=== PATIENT | female | born 2005 | race Caucasian/White ===

== ENCOUNTER 2025-04-30 18:24 | Emergency (ER) | payer BC, SELFPAY ==
--- NOTE | ~2025-04-30 | CT_ITS ---
EXAMINATION: CT brain wo con COMPARISON: None HISTORY: fell, head vs concrete TECHNIQUE: Axial images were obtained through the brain without IV contrast. CT scan performed using dose optimization techniques including the following automated exposure control; adjustment of mA and/or kV; use of iterative reconstruction technique. Automatic exposure control was used to reduce radiation dose. Permanent radiation dose record is archived to PACS. FINDINGS: No acute infarct or parenchymal hemorrhage. No abnormal mass or mass effect. No midline shift. No extra-axial fluid collections. No hydrocephalus. . Mastoid air cells unremarkable. Sinuses and orbits unremarkable. No acute fracture. No significant facial or scalp soft tissue swelling evident. No radiopaque foreign body is seen. Impression: 1.No acute intracranial abnormality. Reviewed, dictated and finalized at location P. Impression: 1.No acute intracranial abnormality.
[2025-04-30 18:38] VITALS: BP 130/80; PULSE 93; RESP 17; TEMP 37.1; O2SAT 100
--- NOTE | 2025-04-30 20:38 | ED.FALL ---
HPI - Fall General Chief Complaint: Fall Stated Complaint: fall Time Seen by Provider: 04/30/25 20:26 History of Present Illness HPI Narrative: 19-year-old female presenting after a closed head injury yesterday. Patient states she was dancing and slipped from the floor and landed on the concrete on her right scalp. Did not lose consciousness and was able to get up right away. No blood thinner use. Patient denies any symptoms but her father went to get checked out. She states she took ibuprofen at home. Mild headache on the right side where she landed. No bleeding or skull injury. No other complaints at this time. No neurological symptoms. Related Data Allergies Allergy/AdvReac Type Severity Reaction Status Date / Time No Known Allergies Allergy Verified 04/30/25 18:27 Review of Systems Review of Systems: As reviewed above in HPI Exam Narrative: GENERAL: [Well-appearing, well-nourished, and in no acute distress.] HEAD: Normocephalic, no obvious trauma. Tenderness to palpation of the right parietal scalp but no deformity or crepitus. No bleeding. No skeletal fracture EYES: [PERRLA and EOMI.] ENT: Nares clear, no rhinorrhea or epistaxis. Mucous membranes moist. NECK: Supple. CHEST: [Clear to auscultation. No respiratory distress.] HEART: [Regular rate and rhythm]. No murmur heard. [Normal peripheral pulses.] ABDOMEN: [Soft, nondistended], [nontender], [No rigidity or guarding] EXTREMITIES: Normal range of motion. [No edema.] SKIN: Warm, dry, no rash. NEURO: [No focal deficits]. Alert and oriented [x3.] PSYCH: [Normal mood and affect.] Course Vital Signs Vital signs: Vital Signs Temperature 37.1 C 04/30/25 18:38 Pulse Rate 93 04/30/25 18:38 Respiratory Rate 17 04/30/25 18:38 Blood Pressure 130/80 04/30/25 18:38 Pulse Oximetry 100 04/30/25 18:38 Temperature 36.8 C 04/30/25 20:59 Pulse Rate 88 04/30/25 20:59 Respiratory Rate 18 04/30/25 20:59 Blood Pressure 128/72 04/30/25 20:59 Pulse Oximetry 99 04/30/25 20:59 MDM - Fall MDM Narrative Medical decision making narrative: 19-year-old female presenting after a closed head injury yesterday. Patient states she was dancing and slipped from the floor and landed on the concrete on her right scalp. Did not lose consciousness and was able to get up right away. No blood thinner use. Patient denies any symptoms but her father went to get checked out. She states she took ibuprofen at home. Mild headache on the right side where she landed. No bleeding or skull injury. No other complaints at this time. No neurological symptoms. Unremarkable neurological assessment. Normal vital signs. No red flag signs or symptoms. Head CT ordered in triage. CT unremarkable without any intracranial findings. Independently reviewed. Patient is safe for discharge and given ibuprofen and work note. Medical Records Attestation: I reviewed the patient's medical records. Imaging Data Attestation: I personally reviewed and interpreted this imaging study as follows: My impression: Impressions Head CT 04/30/25 19:12 Impression: 1.No acute intracranial abnormality. Discharge Plan Discharge Clinical Impression: CHI (closed head injury) Patient Disposition: Home Condition: Stable Instructions: Antibiotic Form, Concussion (ED) Additional Instructions: Head CT was reassuring with no intracranial findings or skull findings. Symptoms consistent with a mild concussion at best. Take ibuprofen 600 mg every 6-8 hours for pain control. If you have any worsening or new symptoms return to the emergency department. Follow-up with regular doctor. Light duty and no heavy lifting or strenuous activity for a week. Patient Language: Nauruan Follow-up/Referrals: PHYSICIAN NOT ON STAFF,NONSTAFF [Non-Staff] Stand Alone Forms: Work/School Release IP Time of Disposition: 20:39
[2025-04-30] MEDS: IBUPROFEN 600 MG TABLET PO (20:48)
--- OUTSIDE RECORDS SUMMARY | 2025-04-30 20:57 | XMS_ITS | Data Portability ---
Author Organization [facility], [facility] Address [address] [place] [address] Assessment No assessment recorded. Plan of Treatment Reminders Order Date Submit Date Provider Last Modified By Organization Details Last Modified Time Details Appointments None recorded . Lab None recorded . Referral None recorded . Procedures None recorded . Surgeries None recorded . Imaging None recorded . Medication Orders Rosalino dimine (28) 3 mg-0.02 mg tablet 2024 025 [email or web address] [facility] [address] [place], [address], 5 12:44:12 estradio l 1 mg tablet 2024 025 [email or web address] [address] [place], [address], 5 13:07:39 estradio l 1 mg tablet 2023 024 [facility] [address] [place], [address], 5 12:50:27 Angela (28) 3 mg-0.02 mg tablet [address] [facility] [address] [place], [address], 4 14:05:08 estradio l 1 mg tablet 2022 023 [facility] [address] [place], [address], 5 12:39:05 Angela (28) 3 mg-0.02 mg tablet 2022 023 [facility] [address] [place], [address], 3 12:22:53 estradio l 1 mg tablet 2021 022 [facility] [address] [place], [address], 5 12:39:05 drospire none 3 mg-ethin yl estradio l 0.02 mg tablet 2021 022 [facility] [address] [place], [address], 2 11:22:51 Patient TargetsNo targets recorded. 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 Reports she is on BOB's with estrogen on off days for cycle regulation and doing well. Desires to continue. R/B/A. Reports she has never been SA. Declines pap and will get @ next appt 2025 so she is prepared. If becomes SA recommend condoms for STI prevention and agree's. Follow up in 1 year for AWE and first pap. Call for any problems. [email or web address] Not available 08/23/2024 13:06:40 Reason for Referral None Reported. Problems Name Problem SNOMED Code Status Onset Date Resolution Date Notes Provider Name and Address Organization Details Recorded Time Uses combined oral contracep tion 518970923 Active 2019 Encounter for initial prescripti on of contracept jones pills; Progress: Stable Added By: Yvonne Brown Add to Current Problems: YES ProblemSta tus: Current Not Available [employer] 08:10:52 Problem Notes None recorded. Medical Equipment None Reported. Allergies No known drug allergies Medications Name Sig Start Date Stop Date Status Note LastModified by Organization Details LastModified Time amoxicill in 500 mg capsule 07/30 completed Not Available Not Available Not Available ondansetr on HCl 8 mg tablet 07/22 completed Not Available Not Available Not Available sumatript an 50 mg tablet 07/22 completed Not Available Not Available Not Available oxycodone -acetamin ophen 5 mg-325 mg tablet 07/25 completed Not Available Not Available Not Available famotidin e 20 mg tablet 07/22 completed Not Available Not Available Not Available amitripty line 25 mg tablet 07/22 completed Not Available Not Available Not Available estradiol 1 mg tablet take 1 tablet (1 mg) po qd for 5 days as needed for abnormal bleeding 2024 active estradio L 1 mg oral tablet RxNorm: 341350 Allow Substitu tion: True Refill Denied: No Edited by: Bryn Starks) on 01/17/20 21 Stopped by: Bryn Starks) on Not Available Not Available Not Available lorazepam 2 mg tablet 07/22 completed Not Available Not Available Not Available doxycycli ne monohydra te 100 mg capsule 07/22 completed Not Available Not Available Not Available cephalexi n 500 mg capsule 07/22 completed Not Available Not Available Not Available monteluka st 10 mg tablet 07/25 completed Not Available Not Available Not Available methylpre dnisolone 4 mg tablets in a dose pack 07/25 completed Not Available Not Available Not Available naproxen 500 mg tablet 07/25 completed Not Available Not Available Not Available amoxicill in 875 mg-potass ium clavulana te 125 mg tablet 07/22 completed Not Available Not Available Not Available Sprintec (28) 0.25 mg-0.035 mg tablet take 1 tablet by oral route once daily 06/25 completed Sprintec (28) 0.25-35 mg-mcg oral tablet RxNorm: 045240 Allow Substitu tion: False Refill Denied: No Refill DateOccu rred: 06/25/20 Edited by: Bryn Starks) on 06/25/20 Stopped by: Bryn Starks) on 06/25/20 20 Not Available Not Available Not Available Gardasil 9 (PF) 0.5 mL intramusc ular suspensio n im shot now and repeat in 2 and 6 months 07/25 completed Gardasil 9 (PF) 0.5 mL intramus cular Suspensi on RxNorm: 3098790 Allow Substitu tion: True Refill Denied: No Edited by: Bryn Starks) on 01/17/20 Stopped by: Bryn Starks) on Not Available Not Available Not Available Lo-Zumand imine (28) 3 mg-0.02 mg tablet TAKE 1 TABLET BY MOUTH EVERY DAY 2024 active Not Available Not Available Not Avai lable Vitals Date Recorded Body weight Systolic And Diastolic Provider Name and Address Organization Details Last Updated DateTime 07/22/2023 09073.18 g 118/62 mm[Hg] Yvonne [email or web address] 07/22/2023 12:29:45 Date Recorded Body weight Systolic And Diastolic Provider Name and Address Organization Details Last Updated DateTime 07/25/2022 36796.73 g 110/62 mm[Hg] Yvonne Kevin [facility] - [facility] 07/25/2022 12:12:22 Date Recorded Body weight Body temperature Systolic And Diastolic Provider Name and Address Organization Details Last Updated DateTime 07/30/2021 95879.7 g 97.1 [degF] 114/56 mm[Hg] Yvonne [facility] 07/30/2021 10:27:26 Date Recorded Body height Body mass index (BMI) Body weight Systolic And Diastolic Provider Name and Address Organization Details Last Updated DateTime 08/23/2024 165.1 cm 22.6 kg/m2 70790.84 g 118/76 mm[Hg] Alessandra [facility] 08/23/2024 12:42:23 Social History Question Answer Notes LastModified by Organizat ion Details LastModified Time Tobacco Smoking Status Never Smoker Afshan You null, [facility] 07/25/2021 17:17:08 If You Are , What Was Your Level Of Alcohol Consumption Prior To ? None Information not available 08/23/2024 How Many Years Have You Consumed Alcohol? 1 Information not available 08/23/2024 Are You Blind Or Do You Have Difficulty Seeing? No Information not available 07/25/2021 Are You Deaf Or Do You Have Serious Difficulty Hearing? No Information not available 07/25/2021 What Type Of Diet Are You Following? REGULAR [email or web address] Information not available 07/30/2021 How Many Children Do You Have? 0 Information not available 07/25/2021 Are There Any Occupational Health Risks Where You Work? No Information not available 08/23/2024 What Is Your Relationship Status? Single Information not available 07/25/2021 Are You Sexually Active? No Information not available 07/25/2021 Sex: Unknown Functional Status Question Answer Note LastModified by Organizat ion Details LastModified Time Do you use any illicit or recreational drugs? No Information not available 07/25/2021 Do you or have you ever used any other forms of tobacco or nicotine? No Information not available 07/25/2021 What is your level of alcohol consumption? Occasional Information not available 08/23/2024 Are you currently employed? Yes Information not available 08/23/2024 Do you or have you ever used e-cigarettes or vape? Never used electronic cigarettes [email or web address] Information not available 07/30/2021 What is your exercise level? Moderate Information not available 07/30/2021 Mental Status None recorded. Family History Relationship Description Onset Age of this Age Resolved Age Notes LastModified by Organization Details LastModified Time Father No current problems or disability Not available 07/13 17:16:46 Mother No current problems or disability Not available 07/13 17:16:46 Mother Endometriosi s (clinical) Not available 10:25:20 Paternal Grandfather Malignant neoplasm of colon [email or web address] Not available 07/30 10:25:20 Paternal Grandfather No current problems or disability [email or web address] Not available 07/13 10:25:20 Maternal Grandmother No current problems or disability [email or web address] Not available 07/13 10:25:20 Maternal Grandmother Hypercholest erolemia [email or web address] Not available 07/30 10:25:20 Paternal Grandmother Hypertensive disorder Not available 07/30 10:25:20 Paternal Grandmother No current problems or disability Not available 07/13 10:25:20 Paternal Grandmother Hypercholest erolemia [email or web address] Not available 07/30 10:25:20 Medical History No medical history recorded. Gynecological History Statement/Question Response Flow Moderate Frequency of Cycle (Q days) 28 Date of LMP 08/21/2024 Most Recent Bone Density Date of Last Pap Smear Duration of Flow (days) 5 Most Recent Mammogram Current Control Method BCPs Age at Menarche 12 Obstetrics History GPAL:G 0 P 0 0 0 0 Past Encounters Encounter ID Performer Location Encounter Start Date Encounter Closed Date Diagnosis/Indication Diagnosis SNOMED-CT Code Diagnosis ICD10 Code Diagnosis IMO Codes Diagnosis Note [id number] Shae Powell MD [address] [address] 07/30/2021 09:59:10 07/30/2021 16:15:13 Gynecologic examination 77044506 Z01.419 16 y.o. here for annual exam. - Patient doing well on current regimen from bleeding aspect and would recommend continuing . Patient agrees and refills sent to pharmacy. - Gardasil vaccine Rx sent to pharmacy and can most likely receive there. - RTO for annual or as needed. Surveillan ce of contraception 759028092 Z30.40 Menorrhagia 941477785 N9 2.0 [id number] Shae Powell MD [facility] [address] [place] [id number] 07/25/2022 11:50:28 07/29/2022 14:58:56 Contraception care 051316302 Z30.09 Menorrhagia 474217882 N9 2.0 Surveillan ce of contraception 295359579 Z30.40 Refills sent to pharmacy. Patient to follow up annually or sooner should issues arise. [id number] Shae Powell MD [address] [address] 07/22/2023 12:19:17 07/24/2023 12:54:13 Contraception care 397564096 Z30.09 - Doing well on the current dose of medication . Reports no side effects. The patient requested for a refill today.- Will continue with the current treatment method for now. Prescripti on for refills provided. Menorrhagia 008603640 N9 2.0 - Prescripti on for refills sent to the pharmacy. Surveillan ce of contraception 726539951 Z30.40 Refills sent to pharmacy. Patient to follow up annually or sooner should issues arise. [id number] Nalini Pena CNM [facility]_ C [address] [place] [phone] 08/23/2024 12:19:44 08/24/2024 11:38:25 Gynecologic examination 96969384 Z01.419 Depression screening 171 992684 Z13.31 See Intake Screening - PHQ Uses contraception 01739 004 Z30.40 Menorrhagia 493632558 N9 2.0 Health Concerns Section Related Observation LastModified by Organization Detai ls LastModified Time None Recorded Concern Status LastModified by Organization Details LastModified Time None Recorded Advance Directives Directive None Recorded Payers Insurance Date Sequence Insurance Name Policy Number Policy Martinez Covered Member ID Martinez Member ID Guarantor Name 08/22/2024 1 [place] [id number] Lefty Jade [id number] Kristina Jade Notes Date Note Type Note Provider Name and Address Organization Details Recorded Time 2 text/html Annual GYNReported by PatientHistoryFor history, patient reportsno gynecologic complaints.Genitourinary symptomsFor menstrual cycle, patient reportsnormal menses. For urinary symptoms, patient reportsno hematuria. For vulva, patient reportsno genital lesion. For vagina, patient reportsnormal vaginal discharge.Breast symptomsFor breast, patient reportsno breast pain.ContraceptionFor current contraception, patient reportssatisfied with current contraceptionandoral contraceptives.Preventative measuresFor preventive measures, patient reportsencourage self breast examinationandencourage regular exercise.pt reports normal cycles on OCP with Estradiol. Pt mother asking if Marina would be better OCP for acne. Pt has tried accutane x2 with continued breakouts and PCP recommended Marina.ROS as noted in the HPI Shae Powell MD [address] [place] [address], [phone], [facility] [employer] [facility] 07/30/2021 12:32:17 3 text/html OCP CheckReported by PatientHPIFor context, patient reportsnumber of ocp cycles completed:12. For associated symptoms, patient reportsregular menses.Doing well on current regimen. No changes in health history.ROS as noted in the [facility] Shae Powell MD [address] [place] [address], [phone], [facility] [employer] [facility] 07/28/2022 16:32:11 4 text/html Contraception visitReported by PatientContraceptionFor type of contraception, patient reportssatisfied with current contraceptionandoral contraceptives.Sexual activityFor sexual history, patient reportsnot sexually active.Menstral cycleFor menstrual cycle, patient reportsnormal menses.The patient verbally consented to documentation via virtual scribe for this encounter.The patient is a 18-year-old female presenting today for contraceptive management. The patient is currently taking Angela (28) 3mg- 0.02 mg tablet. She is doing fine with the current dose of medication and denies any side effects or tolerance issues with it. The patient has no questions or concerns currently. She requested a refill of her medication today.The patient also requested a refill for estradiol 1mg tablet which she is taking currently for menorrhagia management. The patient states that she is doing fine with it and reports no concerns.ROS as noted in the [facility] Shae Powell MD [address] [place] [address], [phone], [facility] [employer] [facility] 07/23/2023 15:37:48 5 text/html Annual GYNReported by PatientHistoryFor history, patient reportsno gynecologic complaintsandno change in interval history.Genitourinary symptomsFor menstrual cycle, patient reportsnormal menses. For urinary symptoms, patient reportsno hematuriaandno incontinence. For vulva, patient reportsno genital lesion. For vagina, patient reportsnormal vaginal discharge.Breast symptomsFor breast, patient reportsno breast pain,no breast lump, andno nipple discharge.ContraceptionFor current contraception, patient reportssatisfied with current contraception,oral contraceptives, andnot sexually active (never).Endocrine symptomsFor menopausal symptoms, patient reportsno menopausal symptomsandnormal vaginal lubrication.Psychological symptomsFor psychological symptoms, patient reportsno depression,no anxiety, andno pmdd.ROS as noted in the HPI Nalini Pena, CN [address] [facility], [place], [phone], [facility] IV 08/23/2024 13:06:50 OBGyn Episode No OBEpisode recorded.
--- OUTSIDE RECORDS SUMMARY | 2025-04-30 20:57 | XMS_ITS | Clinical Summary ---
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 06/27/2020 Active naproxen 500 MG tablet 09/05/2020 Active Social History Tobacco Use Types Packs/Day Years Used Date Smoking Tobacco: Never Assessed Comments Unknown Sex and Gender Information Value Date Recorded Sex Assigned at Not on file Legal Sex Female 8:47 PM PRACTICAL NURSE CLINICAL COORDINATOR Gender Identity Not on file Sexual Orientation Not on file Last Filed Vital Signs Vital Sign Reading Time Taken Comments Blood Pressure 126/76 09/06/2020 9:26 PM PRACTICAL NURSE CLINICAL COORDINATOR Pulse 83 09/06/2020 9:26 PM PRACTICAL NURSE CLINICAL COORDINATOR Temperature 37.1 C (98.7 F) 09/06/2020 9:26 PM PRACTICAL NURSE CLINICAL COORDINATOR Respiratory Rate 17 09/06/2020 9:26 PM PRACTICAL NURSE CLINICAL COORDINATOR Oxygen Saturation 100% 09/06/2020 9:26 PM PRACTICAL NURSE CLINICAL COORDINATOR Inhaled Oxygen Concentration - - Weight 58.1 kg (128 lb) 09/06/2020 9:26 PM PRACTICAL NURSE CLINICAL COORDINATOR Height 165.1 cm (5' 5) 09/06/2020 9:26 PM PRACTICAL NURSE CLINICAL COORDINATOR Body Mass Index 21.3 09/06/2020 9:26 PM PRACTICAL NURSE CLINICAL COORDINATOR Plan of Treatment Health Maintenance Due Date Last Done Comments Cervical Cancer Screening Pap Smear (Age 21 to 29) Every 3 Years 2003 Cervical Cancer Screening 2003 Annual Physical 2006 Meningococcal B Vaccine (1 of 2 - Standard) 2019 Hepatitis C 2021 DTaP, Tdap and Td Vaccines (7 - Td or Tdap) 05/05/2024 05/05/2014, 02/28/2008, 02/28/2008, Additional history exists COVID-19 Vaccine ( season) 2025 Influenza Adult (#1) 2025 06/15/2019, 06/24/2018, 04/20/2017, Additional history exists Hepatitis B Vaccines Completed 2003, 2003, 2003 Pneumococcal Vaccine: Pediatrics (0 to 5 Years) and At-Risk Patients (6 to 49 Years) Completed 05/06/2004, 2003, 2003 HPV Vaccines Completed 12/11/2014, 06/13, 05/05/2014 Hepatitis A Vaccines Completed 12/11/2014, 05/05/20 14 Meningococcal Vaccine Aged Out No dagoberto lc eligible based on patient's age to complete this topic RSV Immunizations Under 20 Months Aged Out No longer eligible based on patient's age to complete this topic Insurance [facility] Care Teams Mobile Home Lot Utility Worker Relationship Specialty Start Date End Date Santa Carson NP PCP - General NURSE PRACTITIONER 09/06/20
[2025-04-30 20:59] VITALS: BP 128/72; PULSE 88; RESP 18; TEMP 36.8; O2SAT 99
== END 2025-04-30 21:01 | disposition home or self-care (01) ==
LOC: ANHED 20:55
PROVIDERS: Emergency Provider Student in an Organized Health Care Education/Training Program
DX: S09.90XA Unspecified injury of head, initial encounter (principal); Y93.41 Activity, dancing; W01.0XXA Fall on same level from slipping, tripping and stumbling without subsequent striking against object, initial encounter
CPT/HCPCS: 70450; 99284; A9270